=== PATIENT | female | born 1985 ===

== ENCOUNTER 2018-03-09 02:57 | Emergency (ER) | payer OTHER ==
[~2018-03-09] VITALS: Ht 157.5 cm; Wt 81.6 kg
[~2018-03-09 02:57] MED LIST: BIOCEL TABLET1 EACH; Mylicon 125MG PO; OXYC1TAB9 PO; PRENATAL CAPLE1 EACH; ZANTAC300 MG PO
[2018-03-09] MEDS ORDERED: PEPCID40 MG PO (06:05)
[2018-03-09] MEDS ORDERED: BENADRYL25 MG PO (06:05)
[2018-03-09] MEDS ORDERED: MEDROL8 MG PO (06:05)
== END 2018-03-09 06:11 | disposition home or self-care (01) ==
LOC: ER 02:57
DX: L50.8 Other urticaria (principal)